=== PATIENT | male | born 2000 | race Caucasian/White ===

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

== ENCOUNTER 2021-03-20 18:09 | Outpatient (CLI) | payer OTHER, SELFPAY | END 2021-03-20 23:59 | disposition short-term general hospital (02) | PROVIDERS: PCP Pediatrics; Visit Provider Nurse Practitioner Family | DX: N39.0 Urinary tract infection, site not specified (principal) | CPT/HCPCS: 87086; 87088 ==